=== PATIENT | male | born 1975 | race African-American/Black ===

== ENCOUNTER 2018-06-17 16:40 | Inpatient (IN) | payer OTHER ==
[2018-06-17] MEDS ORDERED: Ondansetron INJ* 2 MG/ML VIAL IV ONE (17:07)
[2018-06-17] MEDS ORDERED: Ketorolac INJ* 30 MG/ML 1 ML VIAL IV ONE (17:07)
[2018-06-17] MEDS ORDERED: NS 0.9% 1000 ML* 1,000 ML IV ONE (17:07)
[2018-06-17] MEDS ORDERED: Ketorolac INJ* 30 MG/ML 1 ML VIAL ONE (17:08)
[2018-06-17] MEDS ORDERED: Ondansetron INJ* 2 MG/ML VIAL ONE (17:08)
[2018-06-17 17:34] LABS: ABS Basophils 0 10^3/ul (0-0.2); ABS Eosinophils 0 10^3/ul (0-0.6); ABS Lymphocytes 0.6 10^3/ul (1.0-4.8); ABS Monocytes 1.5 10^3/ul (0-0.8); ABS Neutrophils 5.5 10^3/ul (1.5-7.7); ABS Nucleated RBC 0 10^3/ul; Eosinophil % 0.6 % (0-6); Hematocrit 44 % (42-52); Hemoglobin 15.4 g/dl (14.0-18.0); Lymphocyte % 7.7 % (25-47); Mean Corpuscular HGB Conc 35 g/dl (31-36); Mean Corpuscular Hemoglobin 30 pg (27-31); Mean Corpuscular Volume 87 fL (80-94); Mean Platelet Volume 9.1 um3 (7.4-10.4); Nucleated Red Blood Cells % 0; Platelet Count 137 10^3/ul (150-450); Red Blood Count 5.06 10^6/ul (4.00-5.40); Red Cell Distribution Width 14 % (10.5-15); White Blood Count 7.7 10^3/ul (3.5-10.8)
[2018-06-17 17:49] LABS: EGFR Non-African American 64.8 (>60); INR 1.3 (0.77-1.02)
[2018-06-17 17:51] LABS: Urine Appearance Turbid; Urine Blood 1+ (Negative); Urine Color Amber; Urine Ketones Negative (Negative); Urine Protein 2+(100 mg/dL) (Negative); Urine Red Blood Cell 1+(3-5/hpf) (Absent); Urine Specific Gravity 1.012 (1.010-1.030); Urine Urobilinogen Negative (Negative); Urine White Blood Cell 3+(>20/hpf) (Absent)
[2018-06-17] MEDS ORDERED: Morphine INJ* 2 MG/ML 1 ML SYRINGE (TWO MG - NEW SYRINGE VERSION) ONE (18:00)
[2018-06-17] MEDS ORDERED: Morphine INJ* 2 MG/ML 1 ML SYRINGE (TWO MG - NEW SYRINGE VERSION) IV ONE (18:02)
--- NOTE | 2018-06-17 18:06 | RAD ---
INDICATION: Abdominal pain. COMPARISON: Comparison is made with a prior CT of the abdomen and pelvis from August 11, 2012. TECHNIQUE: A CT scan of the abdomen and pelvis was performed without intravenous and without oral contrast. Contiguous axial sections were obtained from the lung bases through the symphysis pubis. Images were reconstructed in the coronal and sagittal planes. FINDINGS: There are small dependent bilateral lower lobe infiltrates. No pleural effusion is present. The liver and spleen are within normal limits in size without significant focal abnormality on this noncontrast study. The gallbladder appears contracted. No calcified gallstones are seen. No pancreatic ductal distention or calcifications are seen. The adrenal glands appear to be within normal limits. There is marked distention of the renal pelvises and dilatation of the calyces consistent with hydronephrosis. The ureters are distended bilaterally to the level of the bladder although less prominent than the proximal pelvic and calyceal distention. No renal, ureteral or bladder calculi are seen. The urinary bladder appears nondistended. There is thickening of the wall of the urinary bladder and stranding in the adjacent fat suggesting the possibility of cystitis. The aorta is normal in caliber without significant calcific plaque. No definite enlarged lymph nodes are seen although as noted on the prior study there is increased soft tissue density present in the inferior pelvis on the right side adjacent to the obturator internus muscle. The stomach, small and large bowel appear nondistended. The appendix is not well-defined. There is mild descending and sigmoid diverticulosis without evidence for diverticulitis. There is a small periumbilical hernia containing fat. No free intraperitoneal air or fluid is seen. No significant focal osseous abnormality is seen. IMPRESSION: 1. SEVERE BILATERAL HYDRONEPHROSIS DESCRIBED SIMILAR ALTHOUGH MORE PROMINENT THAN ON THE PRIOR STUDY. THERE IS THICKENING OF THE WALL OF THE URINARY BLADDER WITH ADJACENT INTERSTITIAL STRANDING SUGGESTIVE OF CYSTITIS. RECOMMEND CLINICAL CORRELATION. 2. INCREASED SOFT TISSUE DENSITY IN THE INFERIOR LATERAL RIGHT PELVIS UNCHANGED SIGNIFICANTLY FROM THE PRIOR EXAM. 3. SMALL BILATERAL LOWER LOBE INFILTRATES.
[2018-06-17] MEDS ORDERED: Piperacillin/Tazobac ADVAN(*) 3.375 GM in NS 0.9% 100 ML* 100 ML IVPB ONE (18:47)
[2018-06-17] MEDS ORDERED: Piperacillin/Tazobac (*) 3.375 GM BAG ONE (19:25)
--- NOTE | 2018-06-17 19:26 | ED ---
Abdominal Pain/Male - HPI Summary HPI Summary: Pt is a 43 y/o M who presents to ED c/o abdominal pain. Yesterday he was seen at and was diagnosed with pyelonephritis. Today the pain in his right abdomen worsened and he rated the pain a 9/10 at triage. He describes the pain as tightness. Denies fever. Notes lower back pain and vomiting. PMHx of renal calculi and stents several times. - History of Current Complaint Chief Complaint: EDUrogenitalProblems Stated Complaint: BACK PAIN Time Seen by Provider: 06/17/18 16:51 Hx Obtained From: Patient Onset/Duration: Lasting Hours, Still Present Severity Currently: Severe Pain Intensity: 9 Pain Scale Used: 0-10 Numeric Character: Other: - "Tightness" Associated Signs And Symptoms: Positive: Back Pain, Vomiting. Negative: Fever - Allergies/Home Medications Allergies/Adverse Reactions: Allergies Allergy/AdvReac Type Severity Reaction Status Date / Time No Known Allergies Allergy Verified 06/17/18 16:48 Home Medications: Home Medications Levofloxacin TAB* [Levaquin TAB*] 750 mg PO DAILY 06/17/18 [History Confirmed ] PMH/Surg Hx/FS Hx/Imm Hx Endocrine/Hematology History: Denies: Hx Diabetes, Hx Thyroid Disease Cardiovascular History: Denies: Hx Hypertension Respiratory History: Denies: Hx Asthma, Hx Chronic Obstructive Pulmonary Disease (COPD) GI History: Denies: Hx Ulcer - Surgical History Surgery Procedure, Year, and Place: URETER REPAIR X10 YEARS PRIOR Infectious Disease History: No Infectious Disease History: Denies: Hx Hepatitis, Hx Human Immunodeficiency Virus (HIV), Traveled Outside the [place] in Last 30 Days - Family History Known Family History: Positive: Other - lung cancer - Social History Alcohol Use: Weekly Substance Use Type: Reports: None Smoking Status (MU): Former Smoker Review of Systems Negative: Fever Positive: Abdominal Pain, Vomiting Positive: Other - lower back pain All Other Systems Reviewed And Are Negative: Yes Physical Exam - Summary Physical Exam Summary: Appearance: Well appearing, no pain distress Skin: warm, dry, reflects adequate perfusion Head/face: normal Eyes: EOMI, GISELLA ENT: normal Neck: supple, non-tender Respiratory: CTA, breath sounds present Cardiovascular: RRR, pulses symmetrical Abdomen: tenderness over right flank, soft Bowel: present Musculoskeletal: strength/ROM intact Neuro: normal, sensory motor intact, A&Ox3 Triage Information Reviewed: Yes Vital Signs On Initial Exam: Initial Vitals Temp Pulse Resp BP Pulse Ox 98.8 F 66 18 119/75 97 06/17/18 16:42 06/17/18 16:42 06/17/18 16:42 06/17/18 16:42 06/17/18 16:42 Vital Signs Reviewed: Yes Diagnostics - Vital Signs Vital Signs Temp Pulse Resp BP Pulse Ox 06/17/18 18:02 20 06/17/18 18:00 60 96 06/17/18 17:57 57 127/70 97 06/17/18 17:27 66 119/72 97 06/17/18 17:00 59 97 06/17/18 16:57 63 126/81 97 06/17/18 16:42 98.8 F 66 18 119/75 97 - Laboratory Lab Results: Lab Results 06/17/18 06/17/18 06/17/18 Range/Units 17:17 17:19 17:19 WBC 7.7 (3.5-10.8) 10^3/ul RBC 5.06 (4.00-5.40) 10^6/ul Hgb 15.4 (14.0-18.0) g/dl Hct 44 (42-52) % MCV 87 (80-94) fL MCH 30 (27-31) pg MCHC 35 (31-36) g/dl RDW 14 (10.5-15) % Plt Count 137 L (150-450) 10^3/ul MPV 9.1 (7.4-10.4) um3 Neut % (Auto) 71.2 (38-83) % Lymph % (Auto) 7.7 L (25-47) % Dixon % (Auto) 20.0 H (0-7) % Eos % (Auto) 0.6 (0-6) % Baso % (Auto) 0.5 (0-2) % Absolute Neuts (auto) 5.5 (1.5-7.7) 10^3/ul Absolute Lymphs (auto) 0.6 L (1.0-4.8) 10^3/ul Absolute Monos (auto) 1.5 H (0-0.8) 10^3/ul Absolute Eos (auto) 0 (0-0.6) 10^3/ul Absolute Basos (auto) 0 (0-0.2) 10^3/ul Absolute Nucleated RBC 0 10^3/ul Nucleated RBC % 0 INR (Anticoag Therapy) 1.30 H (0.77-1.02) APTT 27.0 (26.0-36.3) seconds Sodium (135-145) mmol/L Potassium (3.5-5.0) mmol/L Chloride (101-111) mmol/L Carbon Dioxide (22-32) mmol/L Anion Gap (2-11) mmol/L BUN (6-24) mg/dL Creatinine (0.67-1.17) mg/dL Est GFR ( Amer) (>60) Est GFR (Non-Af Amer) (>60) BUN/Creatinine Ratio (8-20) Glucose (70-100) mg/dL Lactic Acid (0.5-2.0) mmol/L Calcium (8.6-10.3) mg/dL Total Bilirubin (0.2-1.0) mg/dL AST (13-39) U/L ALT (7-52) U/L Alkaline Phosphatase (34-104) U/L Total Protein (6.4-8.9) g/dL Albumin (3.2-5.2) g/dL Globulin (2-4) g/dL Albumin/Globulin Ratio (1-3) Lipase (11.0-82.0) U/L Urine Color Skylar Urine Appearance Turbid Urine pH 6.0 (5-9) Ur Specific Steele 1.012 (1.010-1.030) Urine Protein 2+(100 mg/dl) A (Negative) Urine Ketones Negative (Negative) Urine Blood 1+ A (Negative) Urine Nitrate Positive A (Negative) Urine Bilirubin Negative (Negative) Urine Urobilinogen Negative (Negative) Ur Leukocyte Esterase 3+ A (Negative) Urine WBC (Auto) 3+(>20/hpf) A (Absent) Urine RBC (Auto) 1+(3-5/hpf) A (Absent) Urine Bacteria 3+ A (Absent) Urine Glucose Negative (Negative) 06/17/18 06/17/18 Range/Units 17:19 17:19 WBC (3.5-10.8) 10^3/ul RBC (4.00-5.40) 10^6/ul Hgb (14.0-18.0) g/dl Hct (42-52) % MCV (80-94) fL MCH (27-31) pg MCHC (31-36) g/dl RDW (10.5-15) % Plt Count (150-450) 10^3/ul MPV (7.4-10.4) um3 Neut % (Auto) (38-83) % Lymph % (Auto) (25-47) % Dixon % (Auto) (0-7) % Eos % (Auto) (0-6) % Baso % (Auto) (0-2) % Absolute Neuts (auto) (1.5-7.7) 10^3/ul Absolute Lymphs (auto) (1.0-4.8) 10^3/ul Absolute Monos (auto) (0-0.8) 10^3/ul Absolute Eos (auto) (0-0.6) 10^3/ul Absolute Basos (auto) (0-0.2) 10^3/ul Absolute Nucleated RBC 10^3/ul Nucleated RBC % INR (Anticoag Therapy) (0.77-1.02) APTT (26.0-36.3) seconds Sodium 135 (135-145) mmol/L Potassium 3.5 (3.5-5.0) mmol/L Chloride 102 (101-111) mmol/L Carbon Dioxide 24 (22-32) mmol/L Anion Gap 9 (2-11) mmol/L BUN 11 (6-24) mg/dL Creatinine 1.23 H (0.67-1.17) mg/dL Est GFR ( Amer) 78.5 (>60) Est GFR (Non-Af Amer) 64.8 (>60) BUN/Creatinine Ratio 8.9 (8-20) Glucose 103 H (70-100) mg/dL Lactic Acid 0.9 (0.5-2.0) mmol/L Calcium 8.9 (8.6-10.3) mg/dL Total Bilirubin 0.70 (0.2-1.0) mg/dL AST 25 (13-39) U/L ALT 43 (7-52) U/L Alkaline Phosphatase 62 (34-104) U/L Total Protein 7.3 (6.4-8.9) g/dL Albumin 3.8 (3.2-5.2) g/dL Globulin 3.5 (2-4) g/dL Albumin/Globulin Ratio 1.1 (1-3) Lipase < 10 L (11.0-82.0) U/L Urine Color Urine Appearance Urine pH (5-9) Ur Specific Steele (1.010-1.030) Urine Protein (Negative) Urine Ketones (Negative) Urine Blood (Negative) Urine Nitrate (Negative) Urine Bilirubin (Negative) Urine Urobilinogen (Negative) Ur Leukocyte Esterase (Negative) Urine WBC (Auto) (Absent) Urine RBC (Auto) (Absent) Urine Bacteria (Absent) Urine Glucose (Negative) Result Diagrams: 06/18/18 06:13 06/18/18 06:13 Lab Statement: Any lab studies that have been ordered have been reviewed, and results considered in the medical decision making process. - CT Abd/Pel CT CT Interpretation Completed By: Radiologist - 17:07. IMPRESSION: 1. SEVERE BILATERAL HYDRONEPHROSIS DESCRIBED SIMILAR ALTHOUGH MORE PROMINENT THAN ON THE PRIOR STUDY. THERE IS THICKENING OF THE WALL OF THE URINARY BLADDER WITH ADJACENT INTERSTITIAL STRANDING SUGGESTIVE OF CYSTITIS. RECOMMEND CLINICAL CORRELATION. 2. INCREASED SOFT TISSUE DENSITY IN THE INFERIOR LATERAL RIGHT PELVIS UNCHANGED SIGNIFICANTLY FROM THE PRIOR EXAM. 3. SMALL BILATERAL LOWER LOBE INFILTRATES. ED Physician reviewed this report. Abdominal Pain Fem Course/Dx - Course Course Of Treatment: Pt is a 43 y/o M who presents to ED c/o abdominal pain that he rated as 9/10 in severity. Yesterday he was seen at and was diagnosed with pyelonephritis. Today the pain in his right abdomen worsened and he notes lower back pain. Physical exam revealed tenderness over right flank. Abd/Pel CT showed severe bilateral hydronephrosis as described similar although more prominent that on the prior study. There is thickening of the wall of the urinary bladder with adjacent interstitial stranding suggestive of cystitis. In ED course pt is given morphine and fluids. Pt is diagnosed with pyelonephritis and flank pain. Spoke with Dr. Martinez to admit this patient. Pt is agreeable with this plan. - Diagnoses Differential Diagnosis/HQI/PQRI: Diverticulitis, Pancreatitis, Peptic Ulcer Disease, Renal Colic, Urinary Tract Infection Provider Diagnoses: Pyelonephritis, Flank pain - Provider Notifications Discussed Care Of Patient With: Vikram Ruggiero Time Discussed With Above Provider: 18:30 Instructed by Provider To: Admit As Inpatient Discharge - Sign-Out/Discharge Documenting (check all that apply): Patient Departure - Admit - Discharge Plan Condition: Fair Disposition: ADMITTED TO [facility] - Billing Disposition and Condition Condition: FAIR Disposition: Admitted to [facility]
--- NOTE | 2018-06-17 19:43 | PN ---
Progress Note - Progress Note Date of Service: 06/17/18 Note: This is Epifanio phillips, documenting for attending Dr. Rizwan MD. SO from Dr. Almodovar at shift change pending uro consult. 1928: CONSULT with Dr. Clark, urology States there is nothing surgical to do, admit to hospitalist for pyelonephritis. 1940: Dr. Garber, hospitalist Will have PHYSICIAN CHIEF OF PATHOLOGY see pt.
[2018-06-17] MEDS ORDERED: Acetaminophen TAB* 325 MG PO PRN (19:58)
[2018-06-17] MEDS ORDERED: Ondansetron INJ* 2 MG/ML VIAL IV PRN (19:58)
[2018-06-17] MEDS ORDERED: Ibuprofen TAB* 600 MG PO PRN (19:59)
[2018-06-17] MEDS ORDERED: oxyCODONE TAB* 5 MG TAB PO PRN (19:59)
[2018-06-17] MEDS: NS 0.9% 1000 ML* 1,000 ML IV SCH (21:49)
--- NOTE | 2018-06-17 23:48 | HP ---
CC: Agnes Briseno * ADMISSION HISTORY AND PHYSICAL: DATE OF ADMISSION: 06/17/18 PRIMARY CARE PROVIDER: Agnes Briseno. MY ATTENDING WHILE IN THE HOSPITAL: Kennedy Garber MD * (DICTATED BY SONJA MACDONALD) CHIEF COMPLAINT: Flank pain x5 days. HISTORY OF PRESENT ILLNESS: Mr. Villavicencio is a 43-year-old male with past medical history significant for megaureter who with surgical intervention most recently in 2005, who presents to the emergency department with 5 days of flank pain, fevers, chills, dysuria, and cloudy urine. The patient states that the pain is at its worst 9/10, sharp, unaffected by movement, does not radiate, is located on the right side in his upper back. The patient states that he has not been having a documented fevers, but has been feeling febrile. The patient' s states he has also been having chills. Denies any dyspnea upon standing, chest pain, shortness of breath. The patient states that he started having very poor oral intake, nausea without vomiting and has lost 15 pounds since Wednesday. The patient states the pain has not gotten better or worse. The patient is not taking anything for pain control. The patient went to urgent care yesterday and was started on Levaquin for a presumed pyelonephritis but did not improve at all today and came back to the emergency department. The patient states that he believes that he passed kidney stones today. However, the patient has no known history of kidney stones. He has not had episodes like this before with known pyelonephritis. The patient was seen in consultation by Dr. Clark of Urology on the emergency department who reviewed his CT scan and said there was no indication for surgical treatment though the patient was noted to have bilateral large hydronephrosis, which was relatively unchanged from previous exam. We were asked to admit the patient in the hospital for pyelonephritis treatment with failed outpatient treatment with Levaquin. PAST MEDICAL HISTORY: Right-sided obstructing megaureter, left-sided bilateral hydronephrosis, status post multiple stent placement. PAST SURGICAL HISTORY: Right ureteral tapering and reimplantation, bilateral ureteral stents, most recently in 2005. MEDICATIONS: Levaquin 750 mg p.o. daily. ALLERGIES: No known drug allergies. FAMILY HISTORY: The patient's mother has diabetes. The patient's father denies complication of alcoholism. The patient has 8 siblings, all of whom are healthy. SOCIAL HISTORY: The patient denies ever smoked tobacco. The patient drinks socially. Never has illicit drug use. 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 The patient is and has 2 children, both of whom are healthy. The patient would like his surrogate decision maker to be Char Birmingham, who is his . PHYSICAL EXAMINATION GENERAL: The patient is a 43-year-old male who appears stated age, and sitting comfortably in bed, in no acute distress. VITAL SIGNS: At the time of evaluation, temperature 98.8, pulse rate 66, respiratory rate 18, oxygen saturation 97% on room air, blood pressure 119/75. HEENT: Head, normocephalic, atraumatic. Sclerae anicteric. No conjunctival injection. Nasal mucosa is moist. Oral mucosa is moist. No oropharyngeal erythema, discharge, or exudate. NECK: Supple, nontender. No lymphadenopathy. No carotid bruits auscultated. No JVD. RESPIRATORY: Clear to auscultation bilaterally. No wheeze, rales or rhonchi. Good air exchange bilaterally. CARDIAC: Regular rate and rhythm. No clicks, murmurs, gallops or rubs. Pulses are 2+ in the bilateral dorsalis pedis, posterior tibialis and radial areas. No bilateral lower extremity edema or calf tenderness noted. ABDOMEN: Soft, nontender, nondistended. Bowel sounds present. Normoactive bowel x4 quadrants. No hepatosplenomegaly. No abdominal bruits auscultated. No hepatojugular reflux. GENITOURINARY: No suprapubic tenderness and right-sided CVA tenderness. Nonpalpable bladder and kidneys. NEUROLOGIC: Cranial nerves II through XII intact. No focal deficits. Alert and oriented x3. SKIN: Clean, dry and intact. No rash. PSYCHIATRIC: Pleasant and cooperative. LABORATORY DATA: White blood cell count 7.7, hemoglobin 13.4, hematocrit 44, platelet count 137. INR 1.3, APTT is 27.0. Sodium 135, potassium 3.5, chloride 102, carbon dioxide 24, anion gap 9, BUN 11, creatinine 1.23, glucose 103, lactic acid 0.9, calcium 8.9, bilirubin 0.7, AST 25, ALT 43, alkaline phosphatase 62. Total protein 7.3, albumin 3.8, globulin 3.5. Lipase less than 10. Urine shows 2+ protein, 1+ blood, positive nitrite, 3+ leukocyte esterase, 3+ white blood cells, 1+ red blood cells, 3+ bacteria. STUDIES DONE WHILE IN THE HOSPITAL: Abdomen pelvis CT on 06/17/18, showed severe bilateral hydronephrosis that describes although more prominent than on prior study, there is thickening of the wall of the urinary bladder with adjacent interstitial stranding suggestive of cystitis. Recommend clinical correlation. Increased soft tissue density at the inferolateral right pelvis, unchanged significantly from prior exam. Small bilateral lower lobe infiltrates. ASSESSMENT AND PLAN: Mr. Villavicencio is a 43-year-old male with past medical history significant for right-sided megaureter with bilateral hydronephrosis and multiple urologic surgeries who presents with 5 days of flank pain and positive urinalysis consistent with pyelonephritis, who has failed outpatient treatment with Levaquin, admitted to the hospital for IV antibiotics. 1. Pyelonephritis. Blood cultures and urine cultures are pending. The patient has a grossly positive urinalysis. The patient was seen at Urgent Care yesterday and started on Levaquin with which he has not improved. The patient was seen in consultation by Dr. Clark of Urology while in the emergency department, who recommended admission to the hospital. IV antibiotics until culture results are back. Had IV fluids. We continued on Zosyn, which he first received in the emergency department until sensitivities are returned. The patient is not febrile. Blood cultures are pending. The patient is not septic. 2. Acute kidney injury. The patient creatinine is 1.23, which is increased from his baseline. Most recent baseline in 2012 of 1.1. The patient is - Vincentian, so his creatinine would be expected to be slightly higher, but he has poor oral intake. We will rehydrate and recheck in the morning. 3. Megaureter. Bilateral hydronephrosis. Per Urology, there is no need for surgical intervention at this time. 4. FEN: The patient will have a regular, unrestricted diet and fluids at 100 mL an hour as above. 5. DVT prophylaxis: The patient is low risk. The patient will be anyway ad lea. 6. Disposition: The patient is admitted for observation. 7. Code status: The patient would like to be a full code. The patient's surrogate decision maker is his Char Birmingham as above. TIME SPENT: Approximately 60 minutes were spent on this admission, 30 of which was spent [id number] with the patient, obtaining history and physical and discussing the treatment plan. This plan has been discussed with my attending, Dr. Kennedy Garber, and he is in agreement. SONJA MACDONALD [id number]/[facility] #: [id number] TOMMIE
[2018-06-17] MEDS: Piperacillin/Tazobac ADVAN(*) 3.375 GM in NS 0.9% 100 ML* 100 ML IVPB SCH (23:55)
[2018-06-18 06:26] LABS: Hematocrit 42 % (42-52); Hemoglobin 14.5 g/dl (14.0-18.0); Mean Corpuscular HGB Conc 35 g/dl (31-36); Mean Corpuscular Hemoglobin 30 pg (27-31); Mean Corpuscular Volume 87 fL (80-94); Platelet Count 121 10^3/ul (150-450); Red Blood Count 4.82 10^6/ul (4.00-5.40); Red Cell Distribution Width 15 % (10.5-15); White Blood Count 5.7 10^3/ul (3.5-10.8)
[2018-06-18 06:45] LABS: EGFR Non-African American 63.7 (>60)
[2018-06-18 07:03] LABS: ABS Basophils 0 10^3/ul (0-0.2); ABS Eosinophils 0.1 10^3/ul (0-0.6); ABS Lymphocytes 0.9 10^3/ul (1.0-4.8); ABS Monocytes 1.2 10^3/ul (0-0.8); ABS Neutrophils 3.5 10^3/ul (1.5-7.7); ABS Nucleated RBC 0 10^3/ul; Eosinophil % 2.1 % (0-6); Lymphocyte % 15.8 % (25-47); Nucleated Red Blood Cells % 0
[2018-06-18] MEDS: Piperacillin/Tazobac ADVAN(*) 3.375 GM in NS 0.9% 100 ML* 100 ML IVPB SCH ×2 (08:37→16:24)
[2018-06-18] MEDS: NS 0.9% 1000 ML* 1,000 ML IV SCH (08:39)
--- NOTE | 2018-06-18 15:00 | PN ---
Subjective Date of Service: 06/18/18 Interval History: Pt seen and examined. Meds and labs reviewed ROS: Pt feels improved, right flank pain improved. Denied CAVANAUGH/dizziness, F/C, N /V, CP, SOB, increased cough, sputum production, abd pain, diarrhea, constipation, dysuria, myalgias, arthralgias, throat pain, and new skin lesions. The rest of the 14 point ROS are unremarkable. PHYSICAL EXAM: GEN APPEARANCE: Awake, not in acute distress HEENT: NC/AT, PERRLA, moist oral mucosa, (-) throat erythema NECK: Soft, supple, (-) cervical LAD, (-)JVD HEART: S1S2 WNL, RRR, No MRG CHEST: CTA, BL, GAE, No W/R/R ABD: Soft, ND/NT, NABS 4x Q, (-)CVA tenderness EXT: No C/C/E SKIN: Warm to touch PSYCH: No active psychosis, hallucinations, depression, SI/HI Objective Active Medications: Acetaminophen (Tylenol Tab*) 650 mg PO Q6H PRN PRN Reason: FEVER/PAIN Piperacillin Sod/Tazobactam (Sod 3.375 gm/ Sodium Chloride) 100 mls @ 25 mls/ hr IVPB Q8H [facility] Last Admin: 06/18/18 08:37 Dose: 25 mls/hr Sodium Chloride (Ns 0.9% 1000 Ml*) 1,000 mls @ 100 mls/hr IV PER RATE [facility] Last Admin: 06/18/18 08:39 Dose: 100 mls/hr Ibuprofen (Motrin Tab*) 600 mg PO Q6H PRN PRN Reason: PAIN Ondansetron HCl (Zofran Inj*) 4 mg IV Q6H PRN PRN Reason: NAUSEA Oxycodone HCl (Roxycodone Tab*) 5 mg PO Q6H PRN PRN Reason: PAIN Vital Signs - 8 hr 06/18/18 06/18/18 07:22 11:09 Temperature 98.6 F 97.7 F Pulse Rate 58 53 Respiratory 18 19 Rate Blood Pressure 115/66 117/71 (mmHg) O2 Sat by Pulse 98 98 Oximetry Oxygen Devices in Use Now: None Result Diagrams: 06/18/18 06:13 06/18/18 06:13 Additional Lab and Data: Lab Results 06/17/18 06/17/18 06/17/18 Range/Units 17:17 17:19 17:19 WBC 7.7 (3.5-10.8) 10^3/ul RBC 5.06 (4.00-5.40) 10^6/ul Hgb 15.4 (14.0-18.0) g/dl Hct 44 (42-52) % MCV 87 (80-94) fL MCH 30 (27-31) pg MCHC 35 (31-36) g/dl RDW 14 (10.5-15) % Plt Count 137 L (150-450) 10^3/ul MPV 9.1 (7.4-10.4) um3 Neut % (Auto) 71.2 (38-83) % Lymph % (Auto) 7.7 L (25-47) % [place] % (Auto) 20.0 H (0-7) % Eos % (Auto) 0.6 (0-6) % Baso % (Auto) 0.5 (0-2) % Absolute Neuts (auto) 5.5 (1.5-7.7) 10^3/ul Absolute Lymphs (auto) 0.6 L (1.0-4.8) 10^3/ul Absolute Monos (auto) 1.5 H (0-0.8) 10^3/ul Absolute Eos (auto) 0 (0-0.6) 10^3/ul Absolute Basos (auto) 0 (0-0.2) 10^3/ul Absolute Nucleated RBC 0 10^3/ul Nucleated RBC % 0 INR (Anticoag Therapy) 1.30 H (0.77-1.02) APTT 27.0 (26.0-36.3) seconds Sodium (135-145) mmol/L Potassium (3.5-5.0) mmol/L Chloride (101-111) mmol/L Carbon Dioxide (22-32) mmol/L Anion Gap (2-11) mmol/L BUN (6-24) mg/dL Creatinine (0.67-1.17) mg/dL Est GFR ( Amer) (>60) Est GFR (Non-Af Amer) (>60) BUN/Creatinine Ratio (8-20) Glucose (70-100) mg/dL Lactic Acid (0.5-2.0) mmol/L Calcium (8.6-10.3) mg/dL Total Bilirubin (0.2-1.0) mg/dL AST (13-39) U/L ALT (7-52) U/L Alkaline Phosphatase (34-104) U/L Total Protein (6.4-8.9) g/dL Albumin (3.2-5.2) g/dL Globulin (2-4) g/dL Albumin/Globulin Ratio (1-3) Lipase (11.0-82.0) U/L Urine Color [place] Urine Appearance Turbid Urine pH 6.0 (5-9) Ur Specific [place] 1.012 (1.010-1.030) Urine Protein 2+(100 mg/dl) A (Negative) Urine Ketones Negative (Negative) Urine Blood 1+ A (Negative) Urine Nitrate Positive A (Negative) Urine Bilirubin Negative (Negative) Urine Urobilinogen Negative (Negative) Ur Leukocyte Esterase 3+ A (Negative) Urine WBC (Auto) 3+(>20/hpf) A (Absent) Urine RBC (Auto) 1+(3-5/hpf) A (Absent) Urine Bacteria 3+ A (Absent) Urine Glucose Negative (Negative) 06/17/18 06/17/18 Range/Units 17:19 17:19 WBC (3.5-10.8) 10^3/ul RBC (4.00-5.40) 10^6/ul Hgb (14.0-18.0) g/dl Hct (42-52) % MCV (80-94) fL MCH (27-31) pg MCHC (31-36) g/dl RDW (10.5-15) % Plt Count (150-450) 10^3/ul MPV (7.4-10.4) um3 Neut % (Auto) (38-83) % Lymph % (Auto) (25-47) % [place] % (Auto) (0-7) % Eos % (Auto) (0-6) % Baso % (Auto) (0-2) % Absolute Neuts (auto) (1.5-7.7) 10^3/ul Absolute Lymphs (auto) (1.0-4.8) 10^3/ul Absolute Monos (auto) (0-0.8) 10^3/ul Absolute Eos (auto) (0-0.6) 10^3/ul Absolute Basos (auto) (0-0.2) 10^3/ul Absolute Nucleated RBC 10^3/ul Nucleated RBC % INR (Anticoag Therapy) (0.77-1.02) APTT (26.0-36.3) seconds Sodium 135 (135-145) mmol/L Potassium 3.5 (3.5-5.0) mmol/L Chloride 102 (101-111) mmol/L Carbon Dioxide 24 (22-32) mmol/L Anion Gap 9 (2-11) mmol/L BUN 11 (6-24) mg/dL Creatinine 1.23 H (0.67-1.17) mg/dL Est GFR ( Amer) 78.5 (>60) Est GFR (Non-Af Amer) 64.8 (>60) BUN/Creatinine Ratio 8.9 (8-20) Glucose 103 H (70-100) mg/dL Lactic Acid 0.9 (0.5-2.0) mmol/L Calcium 8.9 (8.6-10.3) mg/dL Total Bilirubin 0.70 (0.2-1.0) mg/dL AST 25 (13-39) U/L ALT 43 (7-52) U/L Alkaline Phosphatase 62 (34-104) U/L Total Protein 7.3 (6.4-8.9) g/dL Albumin 3.8 (3.2-5.2) g/dL Globulin 3.5 (2-4) g/dL Albumin/Globulin Ratio 1.1 (1-3) Lipase < 10 L (11.0-82.0) U/L Urine Color Urine Appearance Urine pH (5-9) Ur Specific [place] (1.010-1.030) Urine Protein (Negative) Urine Ketones (Negative) Urine Blood (Negative) Urine Nitrate (Negative) Urine Bilirubin (Negative) Urine Urobilinogen (Negative) Ur Leukocyte Esterase (Negative) Urine WBC (Auto) (Absent) Urine RBC (Auto) (Absent) Urine Bacteria (Absent) Urine Glucose (Negative) Assess/Plan/Problems-Billing Assessment: - Patient Problems (1) Pyelonephritis Current Visit: Yes Status: Acute Code(s): N12 - TUBULO-INTERSTITIAL NEPHRITIS, NOT SPCF ACUTE OR CHRONIC SNOMED Code(s): 75976337 Comment: -Continue Zosyn -Continue to follow cultures (2) ZAHIRA (acute kidney injury) Current Visit: Yes Status: Acute Code(s): N17.9 - ACUTE KIDNEY FAILURE, UNSPECIFIED SNOMED Code(s): 29176063 Comment: -Likely secondary to above -Continue IVF (3) Congenital megaureter Current Visit: Yes Status: Acute Code(s): Q62.2 - CONGENITAL MEGAURETER SNOMED Code(s): 935313090 Comment: #w/Hydronephrosis: -Continue watchful waiting -No need for surgical intervention at this time (4) DVT prophylaxis Current Visit: Yes Status: Acute Code(s): LDB1537 - SNOMED Code(s): 719803766 Comment: -Will place on SCDs Status and Disposition: -For PT eval -Possible D/C in 2-3 days while awaiting culture and sensitivity data
[2018-06-19] MEDS: Piperacillin/Tazobac ADVAN(*) 3.375 GM in NS 0.9% 100 ML* 100 ML IVPB SCH ×3 (00:38→15:44)
[2018-06-19] MEDS: NS 0.9% 1000 ML* 1,000 ML IV SCH ×2 (04:43→15:12)
--- NOTE | 2018-06-19 14:57 | PN ---
Subjective Date of Service: 06/19/18 Interval History: Pt seen and examined. Meds and labs reviewed ROS: Denied CAVANAUGH/dizziness, F/C, N/V, CP, SOB, increased cough, sputum production , abd pain, diarrhea, constipation, dysuria, myalgias, arthralgias, throat pain , and new skin lesions. The rest of the 14 point ROS are unremarkable. PHYSICAL EXAM: GEN APPEARANCE: Awake, not in acute distress HEENT: NC/AT, PERRLA, moist oral mucosa, (-) throat erythema NECK: Soft, supple, (-) cervical LAD, (-)JVD HEART: S1S2 WNL, RRR, No MRG CHEST: CTA, BL, GAE, No W/R/R ABD: Soft, ND/NT, NABS 4x Q EXT: No C/C/E SKIN: Warm to touch PSYCH: No active psychosis, hallucinations, depression, SI/HI Objective Active Medications: Acetaminophen (Tylenol Tab*) 650 mg PO Q6H PRN PRN Reason: FEVER/PAIN Piperacillin Sod/Tazobactam (Sod 3.375 gm/ Sodium Chloride) 100 mls @ 25 mls/ hr IVPB Q8H [facility] Last Admin: 06/19/18 08:24 Dose: 25 mls/hr Sodium Chloride (Ns 0.9% 1000 Ml*) 1,000 mls @ 100 mls/hr IV PER RATE [facility] Last Admin: 06/19/18 04:43 Dose: 100 mls/hr Ibuprofen (Motrin Tab*) 600 mg PO Q6H PRN PRN Reason: PAIN Ondansetron HCl (Zofran Inj*) 4 mg IV Q6H PRN PRN Reason: NAUSEA Oxycodone HCl (Roxycodone Tab*) 5 mg PO Q6H PRN PRN Reason: PAIN Vital Signs - 8 hr 06/19/18 06/19/18 07:42 11:11 Temperature 98.3 F 97.6 F Pulse Rate 55 61 Respiratory 14 20 Rate Blood Pressure 115/71 119/75 (mmHg) O2 Sat by Pulse 96 96 Oximetry Oxygen Devices in Use Now: None Result Diagrams: 06/18/18 06:13 06/18/18 06:13 Additional Lab and Data: Lab Results 06/17/18 06/17/18 06/17/18 Range/Units 17:17 17:19 17:19 WBC 7.7 (3.5-10.8) 10^3/ul RBC 5.06 (4.00-5.40) 10^6/ul Hgb 15.4 (14.0-18.0) g/dl Hct 44 (42-52) % MCV 87 (80-94) fL MCH 30 (27-31) pg MCHC 35 (31-36) g/dl RDW 14 (10.5-15) % Plt Count 137 L (150-450) 10^3/ul MPV 9.1 (7.4-10.4) um3 Neut % (Auto) 71.2 (38-83) % Lymph % (Auto) 7.7 L (25-47) % [place] % (Auto) 20.0 H (0-7) % Eos % (Auto) 0.6 (0-6) % Baso % (Auto) 0.5 (0-2) % Absolute Neuts (auto) 5.5 (1.5-7.7) 10^3/ul Absolute Lymphs (auto) 0.6 L (1.0-4.8) 10^3/ul Absolute Monos (auto) 1.5 H (0-0.8) 10^3/ul Absolute Eos (auto) 0 (0-0.6) 10^3/ul Absolute Basos (auto) 0 (0-0.2) 10^3/ul Absolute Nucleated RBC 0 10^3/ul Nucleated RBC % 0 INR (Anticoag Therapy) 1.30 H (0.77-1.02) APTT 27.0 (26.0-36.3) seconds Sodium (135-145) mmol/L Potassium (3.5-5.0) mmol/L Chloride (101-111) mmol/L Carbon Dioxide (22-32) mmol/L Anion Gap (2-11) mmol/L BUN (6-24) mg/dL Creatinine (0.67-1.17) mg/dL Est GFR ( Amer) (>60) Est GFR (Non-Af Amer) (>60) BUN/Creatinine Ratio (8-20) Glucose (70-100) mg/dL Lactic Acid (0.5-2.0) mmol/L Calcium (8.6-10.3) mg/dL Total Bilirubin (0.2-1.0) mg/dL AST (13-39) U/L ALT (7-52) U/L Alkaline Phosphatase (34-104) U/L Total Protein (6.4-8.9) g/dL Albumin (3.2-5.2) g/dL Globulin (2-4) g/dL Albumin/Globulin Ratio (1-3) Lipase (11.0-82.0) U/L Urine Color [place] Urine Appearance Turbid Urine pH 6.0 (5-9) Ur Specific [place] 1.012 (1.010-1.030) Urine Protein 2+(100 mg/dl) A (Negative) Urine Ketones Negative (Negative) Urine Blood 1+ A (Negative) Urine Nitrate Positive A (Negative) Urine Bilirubin Negative (Negative) Urine Urobilinogen Negative (Negative) Ur Leukocyte Esterase 3+ A (Negative) Urine WBC (Auto) 3+(>20/hpf) A (Absent) Urine RBC (Auto) 1+(3-5/hpf) A (Absent) Urine Bacteria 3+ A (Absent) Urine Glucose Negative (Negative) 06/17/18 06/17/18 Range/Units 17:19 17:19 WBC (3.5-10.8) 10^3/ul RBC (4.00-5.40) 10^6/ul Hgb (14.0-18.0) g/dl Hct (42-52) % MCV (80-94) fL MCH (27-31) pg MCHC (31-36) g/dl RDW (10.5-15) % Plt Count (150-450) 10^3/ul MPV (7.4-10.4) um3 Neut % (Auto) (38-83) % Lymph % (Auto) (25-47) % [place] % (Auto) (0-7) % Eos % (Auto) (0-6) % Baso % (Auto) (0-2) % Absolute Neuts (auto) (1.5-7.7) 10^3/ul Absolute Lymphs (auto) (1.0-4.8) 10^3/ul Absolute Monos (auto) (0-0.8) 10^3/ul Absolute Eos (auto) (0-0.6) 10^3/ul Absolute Basos (auto) (0-0.2) 10^3/ul Absolute Nucleated RBC 10^3/ul Nucleated RBC % INR (Anticoag Therapy) (0.77-1.02) APTT (26.0-36.3) seconds Sodium 135 (135-145) mmol/L Potassium 3.5 (3.5-5.0) mmol/L Chloride 102 (101-111) mmol/L Carbon Dioxide 24 (22-32) mmol/L Anion Gap 9 (2-11) mmol/L BUN 11 (6-24) mg/dL Creatinine 1.23 H (0.67-1.17) mg/dL Est GFR ( Amer) 78.5 (>60) Est GFR (Non-Af Amer) 64.8 (>60) BUN/Creatinine Ratio 8.9 (8-20) Glucose 103 H (70-100) mg/dL Lactic Acid 0.9 (0.5-2.0) mmol/L Calcium 8.9 (8.6-10.3) mg/dL Total Bilirubin 0.70 (0.2-1.0) mg/dL AST 25 (13-39) U/L ALT 43 (7-52) U/L Alkaline Phosphatase 62 (34-104) U/L Total Protein 7.3 (6.4-8.9) g/dL Albumin 3.8 (3.2-5.2) g/dL Globulin 3.5 (2-4) g/dL Albumin/Globulin Ratio 1.1 (1-3) Lipase < 10 L (11.0-82.0) U/L Urine Color Urine Appearance Urine pH (5-9) Ur Specific [place] (1.010-1.030) Urine Protein (Negative) Urine Ketones (Negative) Urine Blood (Negative) Urine Nitrate (Negative) Urine Bilirubin (Negative) Urine Urobilinogen (Negative) Ur Leukocyte Esterase (Negative) Urine WBC (Auto) (Absent) Urine RBC (Auto) (Absent) Urine Bacteria (Absent) Urine Glucose (Negative) Microbiology and Other Data: Microbiology 06/17/18 17:17 Urine Culture - Preliminary Urine Escherichia Coli 06/17/18 17:25 Aerobic Blood Culture - Preliminary Blood Venous No Growth Day 1 Anaerobic Blood Culture - Preliminary No Growth Day 1 06/17/18 17:19 Aerobic Blood Culture - Preliminary Blood Venous No Growth Day 1 Anaerobic Blood Culture - Preliminary No Growth Day 1 Assess/Plan/Problems-Billing Assessment: - Patient Problems (1) Pyelonephritis Current Visit: Yes Status: Acute Code(s): N12 - TUBULO-INTERSTITIAL NEPHRITIS, NOT SPCF ACUTE OR CHRONIC SNOMED Code(s): 06844351 Comment: -E.coli growing in Urine Cx---awaiting sensitivity data -Blood cultures (-) x 1D -Continue Zosyn (2) ZAHIRA (acute kidney injury) Current Visit: Yes Status: Acute Code(s): N17.9 - ACUTE KIDNEY FAILURE, UNSPECIFIED SNOMED Code(s): 28835844 Comment: -Likely secondary to above -Continue IVF (3) Congenital megaureter Current Visit: Yes Status: Acute Code(s): Q62.2 - CONGENITAL MEGAURETER SNOMED Code(s): 932635311 Comment: #w/Hydronephrosis: -Continue watchful waiting -No need for surgical intervention at this time (4) DVT prophylaxis Current Visit: Yes Status: Acute Code(s): PWA4664 - SNOMED Code(s): 651843790 Comment: -Continue SCDs Status and Disposition: -For PT eval -Possible D/C in 1-2 days when sensitivity data is available and as long as pt continues to improve clinically
[2018-06-20] MEDS: Piperacillin/Tazobac ADVAN(*) 3.375 GM in NS 0.9% 100 ML* 100 ML IVPB SCH ×3 (01:02→16:06)
[2018-06-20] MEDS: NS 0.9% 1000 ML* 1,000 ML IV SCH (01:05)
[2018-06-20 07:02] LABS: Hematocrit 43 % (42-52); Hemoglobin 15.1 g/dl (14.0-18.0); Mean Corpuscular HGB Conc 35 g/dl (31-36); Mean Corpuscular Hemoglobin 30 pg (27-31); Mean Corpuscular Volume 86 fL (80-94); Mean Platelet Volume 8.8 um3 (7.4-10.4); Platelet Count 171 10^3/ul (150-450); Red Blood Count 5.03 10^6/ul (4.00-5.40); Red Cell Distribution Width 15 % (10.5-15); White Blood Count 4.2 10^3/ul (3.5-10.8)
[2018-06-20 07:16] LABS: EGFR Non-African American 78.7 (>60)
[2018-06-20] MEDS ORDERED: NS 0.9% 1000 ML* 1,000 ML IV SCH (17:16)
--- NOTE | 2018-06-20 17:19 | PN ---
Subjective Date of Service: 06/20/18 Interval History: Pt seen and examined. Meds and labs reviewed. Updated both pt and his girlfriend at bedside. ROS: Denied CAVANAUGH/dizziness, F/C, N/V, CP, SOB, increased cough, sputum production , abd pain, diarrhea, constipation, dysuria, myalgias, arthralgias, throat pain , and new skin lesions. The rest of the 14 point ROS are unremarkable. PHYSICAL EXAM: GEN APPEARANCE: Awake, not in acute distress HEENT: NC/AT, PERRLA, moist oral mucosa, (-) throat erythema NECK: Soft, supple, (-) cervical LAD, (-)JVD HEART: S1S2 WNL, RRR, No MRG CHEST: CTA, BL, GAE, No W/R/R ABD: Soft, ND/NT, NABS 4x Q EXT: No C/C/E SKIN: Warm to touch PSYCH: No active psychosis, hallucinations, depression, SI/HI Objective Active Medications: Acetaminophen (Tylenol Tab*) 650 mg PO Q6H PRN PRN Reason: FEVER/PAIN Cefazolin Sodium/Dextrose (Kefzol 1 Gm In Dextrose Duplex (*)) 1 gm in 50 mls @ 200 mls/hr IVPB Q8H [facility] Sodium Chloride (Ns 0.9% 1000 Ml*) 1,000 mls @ 75 mls/hr IV PER RATE [facility] Stop: 06/21/18 06:35 Ibuprofen (Motrin Tab*) 600 mg PO Q6H PRN PRN Reason: PAIN Ondansetron HCl (Zofran Inj*) 4 mg IV Q6H PRN PRN Reason: NAUSEA Oxycodone HCl (Roxycodone Tab*) 5 mg PO Q6H PRN PRN Reason: PAIN Vital Signs - 8 hr 06/20/18 11:57 Temperature 97.7 F Pulse Rate 54 Respiratory 18 Rate Blood Pressure 113/75 (mmHg) O2 Sat by Pulse 97 Oximetry Oxygen Devices in Use Now: None Result Diagrams: 06/20/18 06:39 06/20/18 06:39 Additional Lab and Data: Lab Results 06/17/18 06/17/18 06/17/18 Range/Units 17:17 17:19 17:19 WBC 7.7 (3.5-10.8) 10^3/ul RBC 5.06 (4.00-5.40) 10^6/ul Hgb 15.4 (14.0-18.0) g/dl Hct 44 (42-52) % MCV 87 (80-94) fL MCH 30 (27-31) pg MCHC 35 (31-36) g/dl RDW 14 (10.5-15) % Plt Count 137 L (150-450) 10^3/ul MPV 9.1 (7.4-10.4) um3 Neut % (Auto) 71.2 (38-83) % Lymph % (Auto) 7.7 L (25-47) % [place] % (Auto) 20.0 H (0-7) % Eos % (Auto) 0.6 (0-6) % Baso % (Auto) 0.5 (0-2) % Absolute Neuts (auto) 5.5 (1.5-7.7) 10^3/ul Absolute Lymphs (auto) 0.6 L (1.0-4.8) 10^3/ul Absolute Monos (auto) 1.5 H (0-0.8) 10^3/ul Absolute Eos (auto) 0 (0-0.6) 10^3/ul Absolute Basos (auto) 0 (0-0.2) 10^3/ul Absolute Nucleated RBC 0 10^3/ul Nucleated RBC % 0 INR (Anticoag Therapy) 1.30 H (0.77-1.02) APTT 27.0 (26.0-36.3) seconds Sodium (135-145) mmol/L Potassium (3.5-5.0) mmol/L Chloride (101-111) mmol/L Carbon Dioxide (22-32) mmol/L Anion Gap (2-11) mmol/L BUN (6-24) mg/dL Creatinine (0.67-1.17) mg/dL Est GFR ( Amer) (>60) Est GFR (Non-Af Amer) (>60) BUN/Creatinine Ratio (8-20) Glucose (70-100) mg/dL Lactic Acid (0.5-2.0) mmol/L Calcium (8.6-10.3) mg/dL Total Bilirubin (0.2-1.0) mg/dL AST (13-39) U/L ALT (7-52) U/L Alkaline Phosphatase (34-104) U/L Total Protein (6.4-8.9) g/dL Albumin (3.2-5.2) g/dL Globulin (2-4) g/dL Albumin/Globulin Ratio (1-3) Lipase (11.0-82.0) U/L Urine Color [place] Urine Appearance Turbid Urine pH 6.0 (5-9) Ur Specific [place] 1.012 (1.010-1.030) Urine Protein 2+(100 mg/dl) A (Negative) Urine Ketones Negative (Negative) Urine Blood 1+ A (Negative) Urine Nitrate Positive A (Negative) Urine Bilirubin Negative (Negative) Urine Urobilinogen Negative (Negative) Ur Leukocyte Esterase 3+ A (Negative) Urine WBC (Auto) 3+(>20/hpf) A (Absent) Urine RBC (Auto) 1+(3-5/hpf) A (Absent) Urine Bacteria 3+ A (Absent) Urine Glucose Negative (Negative) 06/17/18 06/17/18 Range/Units 17:19 17:19 WBC (3.5-10.8) 10^3/ul RBC (4.00-5.40) 10^6/ul Hgb (14.0-18.0) g/dl Hct (42-52) % MCV (80-94) fL MCH (27-31) pg MCHC (31-36) g/dl RDW (10.5-15) % Plt Count (150-450) 10^3/ul MPV (7.4-10.4) um3 Neut % (Auto) (38-83) % Lymph % (Auto) (25-47) % [place] % (Auto) (0-7) % Eos % (Auto) (0-6) % Baso % (Auto) (0-2) % Absolute Neuts (auto) (1.5-7.7) 10^3/ul Absolute Lymphs (auto) (1.0-4.8) 10^3/ul Absolute Monos (auto) (0-0.8) 10^3/ul Absolute Eos (auto) (0-0.6) 10^3/ul Absolute Basos (auto) (0-0.2) 10^3/ul Absolute Nucleated RBC 10^3/ul Nucleated RBC % INR (Anticoag Therapy) (0.77-1.02) APTT (26.0-36.3) seconds Sodium 135 (135-145) mmol/L Potassium 3.5 (3.5-5.0) mmol/L Chloride 102 (101-111) mmol/L Carbon Dioxide 24 (22-32) mmol/L Anion Gap 9 (2-11) mmol/L BUN 11 (6-24) mg/dL Creatinine 1.23 H (0.67-1.17) mg/dL Est GFR ( Amer) 78.5 (>60) Est GFR (Non-Af Amer) 64.8 (>60) BUN/Creatinine Ratio 8.9 (8-20) Glucose 103 H (70-100) mg/dL Lactic Acid 0.9 (0.5-2.0) mmol/L Calcium 8.9 (8.6-10.3) mg/dL Total Bilirubin 0.70 (0.2-1.0) mg/dL AST 25 (13-39) U/L ALT 43 (7-52) U/L Alkaline Phosphatase 62 (34-104) U/L Total Protein 7.3 (6.4-8.9) g/dL Albumin 3.8 (3.2-5.2) g/dL Globulin 3.5 (2-4) g/dL Albumin/Globulin Ratio 1.1 (1-3) Lipase < 10 L (11.0-82.0) U/L Urine Color Urine Appearance Urine pH (5-9) Ur Specific [place] (1.010-1.030) Urine Protein (Negative) Urine Ketones (Negative) Urine Blood (Negative) Urine Nitrate (Negative) Urine Bilirubin (Negative) Urine Urobilinogen (Negative) Ur Leukocyte Esterase (Negative) Urine WBC (Auto) (Absent) Urine RBC (Auto) (Absent) Urine Bacteria (Absent) Urine Glucose (Negative) Microbiology and Other Data: Microbiology 06/17/18 17:17 Urine Culture - Preliminary Urine Escherichia Coli 06/17/18 17:25 Aerobic Blood Culture - Preliminary Blood Venous No Growth Day 1 Anaerobic Blood Culture - Preliminary No Growth Day 1 06/17/18 17:19 Aerobic Blood Culture - Preliminary Blood Venous No Growth Day 1 Anaerobic Blood Culture - Preliminary No Growth Day 1 Assess/Plan/Problems-Billing Assessment: - Patient Problems (1) Pyelonephritis Current Visit: Yes Status: Acute Code(s): N12 - TUBULO-INTERSTITIAL NEPHRITIS, NOT SPCF ACUTE OR CHRONIC SNOMED Code(s): 99880970 Comment: -E.coli growing in Urine Cx---resistant to quinolones, hence, likely cause of failed outpatient therapy -Blood cultures (-) x 2D -D/C Zosyn and start Cefazolin IV q8H -Appreciate Dr. Macario input: for Renal scan tomorrow---will defer (2) ZAHIRA (acute kidney injury) Current Visit: Yes Status: Acute Code(s): N17.9 - ACUTE KIDNEY FAILURE, UNSPECIFIED SNOMED Code(s): 83025956 Comment: -Resolved -Likely secondary to above -Decrease IVF rate to 75cc/hr for 1 more bag then D/C (3) Congenital megaureter Current Visit: Yes Status: Acute Code(s): Q62.2 - CONGENITAL MEGAURETER SNOMED Code(s): 512533186 Comment: #w/Hydronephrosis: -Continue watchful waiting -No need for surgical intervention at this time (4) DVT prophylaxis Current Visit: Yes Status: Acute Code(s): RXQ5006 - SNOMED Code(s): 064460274 Comment: -Continue SCDs Status and Disposition: -Appreciate PT input -Possible D/C in AM after renal scan evaluated by Urology dept and no plan for any immediate surgical intervention
[2018-06-20] MEDS: ceFAZolin 1 GM in Dextrose (*) 1 GM/50 ML BAG IVPB SCH (20:52)
[2018-06-21] MEDS: ceFAZolin 1 GM in Dextrose (*) 1 GM/50 ML BAG IVPB SCH ×2 (01:47→11:46)
[2018-06-21] MEDS ORDERED: Furosemide IV* 10 MG/ML 2 ML VIAL (20 MG) ONE (10:22)
--- NOTE | 2018-06-21 12:17 | RAD ---
Indication: Pyelonephritis Comparison: CT of the abdomen and pelvis dated June 17, 2018 Technique: 15.44 mCi of Tc-99m DTPA was administered IV. The renal flow study was performed in posterior projection. Immediately following the flow study and at one hour static images were obtained. The patient received 20 mg of Lasix IV. Findings: The appearance of hydronephrosis seen on the previous CT examination is evident scintigraphically as well. Calculated total GFR is 133 ml/min. Calculated GFR in the left is 73 ml/min. Calculated GFR in the right is 76 ml/min. Time to half peak of the collecting systems: Normal < 10 min Obstructive >20 min Left 13.9 minutes Right 12.3 minutes IMPRESSION: 1. Bilateral hydroureteronephrosis apparent on the prior CT examination is also seen scintigraphically. 2. Time to 1/2 peak is 13.9 minutes on the left and 12.3 minutes on the right, intermediate values.
--- NOTE | 2018-06-21 14:58 | PN ---
Work Excuse - Work Note Work Note: The above employee has been evaluated on 06/21/18. The physician has instructed the employee concerning further work as described below. To whom it may concern, This is to certify that Mr. Villavicencio was evaluated and admitted to our facility on 06/19/18 and has been discharged today. He will need a few days to recupperate at home and can go back to work and resume his duties on 06/27/18 [] Vikram Ruggiero MD 06/21/[id number]
[2018-06-21 15:05] VITALS: BP 114/82
== END 2018-06-21 15:10 | disposition home or self-care (01) | DRG 690 ==
LOC: ED 16:40 → MED 20:09 → OBSVTOIN 06-19 14:00
PROVIDERS: ADMIT Hospitalist; ATTEND Student in an Organized Health Care Education/Training Program
DX: N12 Tubulo-interstitial nephritis, not specified as acute or chronic (principal); Q62.2 Congenital megaureter; B96.20 Unspecified Escherichia coli [E. coli] as the cause of diseases classified elsewhere; Z16.23 Resistance to quinolones and fluoroquinolones; N17.9 Acute kidney failure, unspecified; N13.39 Other hydronephrosis; Z83.3 Family history of diabetes mellitus
CPT/HCPCS: 36415; 74176; 78708; 80048; 80053; 81003; 81015; 83605; 83690; 83735; 84100; 85025; 85027; 85610; 85730; 87040; 87077; 87086; 87186; 99284; A9539; G0378; J0690; J1885; J1940; J2270; J2405; J2543

== ENCOUNTER 2020-06-03 15:07 | Observation (INO) ==
[2020-06-03] MEDS ORDERED: NS 0.9% 1000 ml BAG 1,000 ML IV ONE (15:14)
[2020-06-03] MEDS ORDERED: Ondansetron 4 mg VIAL 2 MG/ML 2 ml VIAL IV ONE (15:14)
[2020-06-03] MEDS ORDERED: Morphine 4 MG/ML VIAL (1 ml) IV ONE (15:19)
[2020-06-03 15:27] LABS: ABS Basophils 0.1 10^3/ul (0-0.2); ABS Eosinophils 0.2 10^3/ul (0-0.6); ABS Lymphocytes 2.2 10^3/ul (1.0-4.8); ABS Monocytes 0.9 10^3/ul (0-0.8); Hematocrit 48 % (42-52); Hemoglobin 16.6 g/dL (14.0-18.0); Lymphocyte % 31.1 %; Mean Corpuscular HGB Conc 35 g/dL (31-36); Mean Corpuscular Hemoglobin 31 pg (27-31); Mean Corpuscular Volume 91 fL (80-94); Mean Platelet Volume 8.7 fL (7.4-10.4); Nucleated Red Blood Cells % 0.1; Platelet Count 176 10^3/uL (150-450); Red Blood Count 5.26 10^6 /uL (4.18-5.48); Red Cell Distribution Width 14 % (10-15)
[2020-06-03] MEDS ORDERED: HYDROmorphone 0.5 MG/0.5 ML SYRINGE IV ONE ×3 (16:00→18:24)
[2020-06-03 16:15] LABS: ALT 19 U/L (7-52); AST 21 U/L (13-39); Albumin 4.5 g/dL (3.2-5.2); Albumin/Globulin Ratio 1.4 (1-3); Alkaline Phosphatase 55 U/L (34-104); Anion Gap 6 mmol/L (2-11); Blood Urea Nitrogen 27 mg/dL (6-24); C Reactive Protein < 1.00 mg/L (<8.01); CO2 Carbon Dioxide 27 mmol/L (22-32); Calcium 9.8 mg/dL (8.6-10.3); Chloride 103 mmol/L (101-111); EGFR African American 77.7 (>60); EGFR Non-African American 64.2 (>60); Globulin 3.2 g/dL (2-4); Glucose 101 mg/dL (70-100); Sodium 136 mmol/L (135-145); Total Protein 7.7 g/dL (6.4-8.9)
[2020-06-03] MEDS ORDERED: Metoclopramide 5 MG/ML VIAL (10 mg) IV ONE (16:59)
[2020-06-03] MEDS ORDERED: NS 0.9% 1000 ml BAG 1,000 ML IV SCH (18:45)
[2020-06-03] MEDS ORDERED: Iohexol 180 (CONTRAST) 10 ML SDV IV ONE (18:53)
[2020-06-03] MEDS ORDERED: cefTRIAXone 1 gm/50 mL NS BAG 1 GM/50 ML BAG ONE (18:53)
[2020-06-03] MEDS ORDERED: Ondansetron 4 mg VIAL 2 MG/ML 2 ml VIAL IV PRN (19:05)
[2020-06-03] MEDS ORDERED: Morphine 2 MG/ML SYRINGE IV PRN (19:05)
[2020-06-03] MEDS ORDERED: cefTRIAXone 1 gm/50 mL NS BAG 1 GM/50 ML BAG IVPB ONE (19:13)
[2020-06-03] MEDS ORDERED: Lidocaine 2% PF 5 ML VIAL ONE (20:01)
[2020-06-03] MEDS ORDERED: Propofol 10 MG/ML 20 ML BTL ONE (20:01)
[2020-06-03] MEDS ORDERED: Ondansetron 4 mg VIAL 2 MG/ML 2 ml VIAL ONE ×2 (20:01→20:55)
[2020-06-03] MEDS ORDERED: Dexamethasone IV 4 MG/ML VIAL 1 ml VIAL ONE (20:01)
[2020-06-03] MEDS ORDERED: Naloxone 0.4 mg VIAL 0.4 mg/ml 1 ml VIAL IV PRN (20:30)
[2020-06-03] MEDS: NS 0.9% 1000 ml BAG 1,000 ML IV SCH (21:36)
[2020-06-03] MEDS ORDERED: Prochlorperazine 5 mg/ml 2 ml VIAL (10 mg) IV PRN (23:11)
[2020-06-04 06:00] LABS: ABS Lymphocytes 0.6 10^3/ul (1.0-4.8); ABS Monocytes 0.7 10^3/ul (0-0.8); Hematocrit 43 % (42-52); Hemoglobin 15.1 g/dL (14.0-18.0); Lymphocyte % 5.2 %; Mean Corpuscular HGB Conc 35 g/dL (31-36); Mean Corpuscular Hemoglobin 32 pg (27-31); Mean Corpuscular Volume 90 fL (80-94); Mean Platelet Volume 9.1 fL (7.4-10.4); Platelet Count 141 10^3/uL (150-450); Red Blood Count 4.78 10^6 /uL (4.18-5.48); Red Cell Distribution Width 14 % (10-15); White Blood Count 10.7 10^3/uL (3.5-10.8)
[2020-06-04 06:14] LABS: BUN/Creatinine Ratio 19.1 (8-20); Calcium 8.7 mg/dL (8.6-10.3); EGFR African American 72.3 (>60); EGFR Non-African American 59.7 (>60); Potassium 4.6 mmol/L (3.5-5.0)
[2020-06-04] MEDS: NS 0.9% 1000 ml BAG 1,000 ML IV SCH (06:58)
[2020-06-04 07:15] VITALS: BP 112/65
== END 2020-06-04 10:20 | disposition home or self-care (01) ==
LOC: ED 15:07 → OR 19:05 → SSU 19:05
PROVIDERS: ADMIT Nurse Practitioner; ATTEND Internal Medicine